=== PATIENT | female | born 1975 | race Caucasian/White ===

== ENCOUNTER → 2025-04-15 10:01 | Outpatient (REF) | payer OTHER, SELFPAY | LOC: HWRAD 10:01 | PROVIDERS: ATTENDING PHYSICIAN Obstetrics & Gynecology; FAMILY PHYSICIAN Internal Medicine | DX: T83.32XA Displacement of intrauterine contraceptive device, initial encounter (principal) | CPT/HCPCS: 76830; 76856 ==